=== PATIENT | male | born 1950 | race Two or more races ===

== ENCOUNTER 2018-06-03 16:45 | Emergency (ER) | payer OTHER, MEDICAID ==
[~2018-06-03] VITALS: Ht 180.3 cm; Wt 90.7 kg
[2018-06-03 16:57] VITALS: BP 120/63
[2018-06-03 17:31] LABS: Basophils # (auto) 0.1 uL; Basophils % (auto) 0.9 % (0.0-2.0); Eosinophils # (auto) 0.3 uL; Eosinophils % (auto) 4.8 % (0.0-7.0); Hematocrit 38.1 % (41.0-53.0); Hemoglobin 12.9 g/dL (13.5-17.5); Lymphocytes # (auto) 1.8 uL; Lymphocytes % (auto) 25.6 % (10.0-50.0); Mean Corpuscular Hemoglobin 31.5 pg (28.0-32.0); Mean Corpuscular Hgb Conc. 33.9 g/dL (32.0-36.0); Mean Corpuscular Volume 92.8 fL (80.0-100.0); Monocytes # (auto) 0.7 uL; Monocytes % (auto) 10.1 % (0.0-12.0); Neutrophils # (auto) 4.1 uL; Neutrophils % (auto) 58.6 % (37.0-80.0); Nucleated Red Blood Cells % 0.1 %; Platelet Count (auto) 250 10^3/uL (140-450); White Blood Cell 6.9 10^3/uL (4.4-10.8)
[2018-06-03 17:40] LABS: Alanine Aminotransferase 23 U/L (16-61); Albumin 3.6 g/dL (3.4-5.0); Anion Gap 6 (5-15); Blood Urea Nitrogen 23 mg/dL (7-18); Calcium 8.3 mg/dL (8.5-10.1); Carbon Dioxide 24 mmol/L (21-32); Chloride 108 mmol/L (98-107); Glucose 99 mg/dL (74-106); Magnesium 2.4 mg/dL (1.6-2.6); Potassium 3.7 mmol/L (3.5-5.1); Sodium 138 mmol/L (136-145)
[2018-06-03 17:45] LABS: Alkaline Phosphatase 79 U/L (45-117); Aspartate Aminotransferase 9 U/L (15-37); BUN/Creatinine Ratio 23.5; Bilirubin, Total 0.3 mg/dL (0.2-1.0); GFR African American > 60 mL/min; GFR Non-African American > 60 mL/min
[2018-06-03 21:45] LABS: INR 0.91 (0.9-1.15); Partial Thromboplastin Time 25.8 sec (23.78-33.04); Prothrombin Time 9.8 sec (9.27-12.13)
== END 2018-06-03 20:54 | disposition left against medical advice (07) ==
LOC: EDBD 16:45 → ER 16:53
DX: R07.9 Chest pain, unspecified (principal); Z53.21 Procedure and treatment not carried out due to patient leaving prior to being seen by health care provider
CPT/HCPCS: 36415; 80053; 83735; 83880; 84443; 84484; 85025; 85379; 85610; 85730